=== PATIENT | female | born 1980 | race Caucasian/White ===

== ENCOUNTER 2019-04-01 08:11 | Emergency (ER) | payer SELFPAY ==
[~2019-04-01] VITALS: Ht 165 cm; Wt 72.0 kg
[2019-04-01] MEDS ORDERED: LIDOCAINE 1% INJ 20 ML 20 ML VIAL ONE (08:32)
--- NOTE | 2019-04-01 08:43 | ED Integumentary General ---
General Chief Complaint: Skin/Wound Problems Stated Complaint: NAUSEA,DIZZINESS,ABSCESS ON LEG Nursing Triage Note: ABSCESS ON THE LEFT CALF AREA. PT HAS BEEN ON BACTRIM X 3 DAYS. History of Present Illness Date Seen by Provider: Apr 01, 2019 Time Seen by Provider: 08:38 Initial Comments 38-year-old female noted a lesion on her left calf several days ago, was seen and started on Bactrim 3 days ago she feels it is somewhat larger and somewhat more painful than before does not have any ascending red streak up her leg has not had fever or chills has had nausea but no vomiting has felt dizzy but has not had syncope does have a prior history of MRSA infection on that left ankle Allergies and Home Medications Allergies Coded Allergies: amoxicillin (Verified Allergy, Unknown, 04/01/19) clavulanic acid (Verified Allergy, Unknown, 04/01/19) Patient Home Medication List Home Medication List Reviewed: Yes Review of Systems Review of Systems Constitutional: No chills; dizziness; No fever EENTM: no symptoms reported Respiratory: no symptoms reported Cardiovascular: no symptoms reported Gastrointestinal: no symptoms reported Genitourinary: no symptoms reported Musculoskeletal: other (painful lesion left calf) Skin: no symptoms reported Psychiatric/Neurological: No Symptoms Reported Past Hnczogs-Capwiq-Wujsyu Hx Patient Social History Alcohol Use: Occasionally Uses Recreational Drug Use: No Smoking Status: Current Everyday Smoker Type Used: Cigarettes 2nd Hand Smoke Exposure: No Recent Foreign Travel: No Contact w/Someone Who Travel: No Recent Infectious Disease Expo: No Recent Hopitalizations: No Physical Abuse: No Sexual Abuse: No Mistreated: No Fear: No Seasonal Allergies Seasonal Allergies: No Past Medical History Surgeries: No Respiratory: No Cardiac: No Neurological: No Genitourinary: No Gastrointestinal: No Musculoskeletal: No Endocrine: No HEENT: No Cancer: No Psychosocial: No Integumentary: No Blood Disorders: No Physical Exam Vital Signs Vital Signs - First Documented 04/01/19 08:22 Temp 36.2 Pulse 84 Resp 18 B/P (MAP) 114/66 (82) O2 Delivery Room Air Capillary Refill : Less Than 3 Seconds General Appearance: WD/WN, mild distress HEENT: PERRL/EOMI, TMs normal, pharynx normal Neck: supple Cardiovascular: regular rate, rhythm Respiratory: lungs clear Gastrointestinal: non tender Comments 3-1/2 to 4 cm pustule or raised nodular area mid left calf there is faint surrounding redness but no ascending red streak Procedures/Interventions Progress Area was anesthetized with 1% lidocaine and incision made into a pus pocket culture was taken a moderate amount of purulent material was drained out which took down the swelling and raised nature the lesion Progress/Results/Core Measures Results/Orders My Orders Orders - MILY KRAMER MD Lidocaine 1% Inj 20 Ml (Xylocaine 1% Inj (04/01/19 08:32) Lidocaine 1% Inj 20 Ml (Xylocaine 1% Inj (04/01/19 08:45) Gary/Poly/Yair Topical Ointment (Neosporin (04/01/19 09:00) Wound Culture (04/01/19 08:43) Wound Dressing-Ed (04/01/19 08:43) Vital Signs/I&O 04/01/19 08:22 Temp 36.2 Pulse 84 Resp 18 B/P (MAP) 114/66 (82) O2 Delivery Room Air Blood Pressure Mean: 82 POS Departure Impression Primary Impression: Abscess Disposition: 01 HOME, SELF-CARE Condition: Improved Departure-Patient Inst. Decision time for Depature: 08:50 Referrals: NO,LOCAL PHYSICIAN (PCP/Family) Primary Care Physician Patient Instructions: Wound Incision and Drainage (DC), Methicillin-Resistant Staphylococcus aureus (MRSA) MILY KRAMER MD Apr 01, 2019 08:43 POS
[2019-04-01] MEDS ORDERED: LIDOCAINE 1% INJ 20 ML 20 ML VIAL INJ ONE (08:45)
[2019-04-01] MEDS ORDERED: NEO/POLY/BAC (NEOSPORIN) OINT 15 GM TUBE TOP SCH (09:00)
[2019-04-01 09:14] VITALS: BP 114/66
== END 2019-04-01 09:20 | disposition home or self-care (01) ==
LOC: ER FS 08:13
DX: L02.416 Cutaneous abscess of left lower limb (principal); F17.210 Nicotine dependence, cigarettes, uncomplicated; Z88.1 Allergy status to other antibiotic agents; Z88.0 Allergy status to penicillin
CPT/HCPCS: 10060; 87070; 87077; 87205